=== PATIENT | female | born 1985 | race American Indian/Alaskan Native ===

== ENCOUNTER 2017-05-09 23:42 | Emergency (ER) | payer BC ==
[2017-05-10] MEDS ORDERED: TYLENOL PO ONE (00:21)
[2017-05-10 00:52] LABS: Basophils % (Auto) 0.5 % (0.0-1.8); Eosinophils % (Auto) 4.7 % (0.0-4.3); Hematocrit 41.5 % (30.3-42.9); Hemoglobin 13.9 gm/dl (10.1-14.3); Mean Corpuscular HGB Conc 34 % (30-34); Mean Corpuscular Hemoglobin 30 pg (28-32); Mean Corpuscular Volume 90 fl (79-97); Platelet Count 321 K/mm3 (140-440); Red Blood Count 4.59 M/mm3 (3.65-5.03); White Blood Count 10.7 K/mm3 (4.5-11.0)
[2017-05-10 01:09] LABS: Anion Gap 18 mmol/L; BUN/Creatinine Ratio 17; Blood Urea Nitrogen 12 mg/dL (7-17); Calcium 9.6 mg/dL (8.4-10.2); Carbon Dioxide 22 mmol/L (22-30); Chloride 102.3 mmol/L (98-107); Glucose 96 mg/dL (65-100); Potassium 3.5 mmol/L (3.6-5.0); Sodium 139 mmol/L (137-145)
[2017-05-10 02:48] LABS: Bacteria,Urine 2+ /HPF (Negative); Bilirubin,Urine NEG (Negative); Blood,Urine NEG (Negative); Ketones,Urine NEG (Negative); Leukocyte Esterase,Urine TR (Negative); Mucus,Urine 1+ /HPF; Nitrite,Urine NEG (Negative); Protein,Urine <15 mg/dL mg/dL (Negative)
--- NOTE | 2017-05-10 04:24 | Cat Scan Report ---
FINAL REPORT EXAM: CT CERVICAL SPINE WO CON HISTORY: headache TECHNIQUE: CT imaging is acquired through the cervical spine without contrast. Transaxial, coronal and sagittal reformations are provided. PRIORS: None. FINDINGS: The cervical spine is intact. Vertebral body heights are preserved. No acute fracture or listhesis. Atlanto-dens interval and odontoid process are intact. Intervertebral disc spaces are preserved. No perivertebral soft tissue swelling or hematoma identified. Limited soft tissue exam of the visualized neck is remarkable for a possible right thyroid 12 millimeter nodule. IMPRESSION: No acute cervical spine fracture or soft tissue abnormality identified within limits of noncontrast exam. Correlate with physical exam and follow up as warranted. Possible 12 millimeter right thyroid nodule. Consider follow-up ultrasound.
--- NOTE | 2017-05-10 04:26 | Cat Scan Report ---
FINAL REPORT EXAM: CT HEAD/BRAIN WO CON HISTORY: headache TECHNIQUE: CT imaging acquired through the head without intravenous contrast. Transaxial reformations are provided. PRIORS: None. FINDINGS: The ventricles, cisterns and sulci are normal. No intraparenchymal or extra-axial mass, hemorrhage, or mass effect. Lopez and white-matter differentiation is normal. Normal spherical shape of the globes. Paranasal sinuses and mastoid air cells are clear. No skull or facial fracture visualized. IMPRESSION: No acute intracranial abnormality. Consider follow-up MRI as warranted.
[2017-05-10] MEDS ORDERED: REGLAN IV ONE (06:29)
[2017-05-10] MEDS ORDERED: BENADRYL IV ONE (06:29)
[2017-05-10] MEDS ORDERED: XYLOCAINE TOPICAL 4% TP ONE (06:29)
--- NOTE | 2017-05-10 06:31 | Emergency Department Report ---
ED General Adult HPI - General Chief complaint: Headache Stated complaint: HEADACHE, BACKPAIN, Time Seen by Provider: 05/10/17 06:15 Source: patient, RN notes reviewed Mode of arrival: Ambulatory Limitations: No Limitations - History of Present Illness Initial comments: This is a 31-year-old female, the patient is previously unknown to this provider , she is 2, para 1, last menstrual period was in March. She has an DIRECTOR OF CARDIOLOGY doctor, but she cannot recall the name of her DIRECTOR OF CARDIOLOGY doctor. The patient presents to the ER with 2 complaints. First complaint is headache. The headache is right-sided, temporal, and radiates down to the right neck. The headache has been present for 3 days. There is no trauma, the patient is not having fevers or chills, there is no neck stiffness. The headache is not sudden or thunderclap in nature, it did not which maximal intensity within an hour, and it is not the worse headache of her life. The headache started very mildly, it is throbbing, in which maximal intensity around 24 hours ago. Patient reports a worse headache a few months ago. Patient endorses no tinnitus or vertigo, indicates no pain or claudication or trismus or malocclusion, but does endorse sensitivity to light. Her next complaint is back pain. Back pain is in the bilateral sacroiliac regions. It is achy, and does not radiate anywhere, increases with palpation, decreases with rest. There is no abdominal pain, no irritative or obstructive urinary symptoms, no bladder or bowel retention or incontinence. There is also no saddle anesthesia. -: Gradual Location: head, back Severity scale (0 -10): 10 Quality: aching Consistency: intermittent Improves with: movement, rest Associated Symptoms: headaches. denies: confusion, chest pain - Related Data Home Medications Medication Instructions Recorded Confirmed Last Taken ALBUTEROL Inhaler 1 puff IH BID 05/10/17 05/10/17 Unknown Tablet 1 tab PO DAILY 05/10/17 05/10/17 Unknown Previous Rx's Medication Instructions Recorded Last Taken Type Acetaminophen [Tylenol Arthritis] 650 mg PO Q6HR PRN #30 tablet.er 05/10/17 Unknown Rx Doxylamine Succinate/Vit B6 1 each PO QHS PRN #30 tablet.dr 05/10/17 Unknown Rx [Diclegis Dr 10-10 mg Tablet] Dipti Root [Dipti] 250 mg PO QID PRN #30 capsule 05/10/17 Unknown Rx Vit Calc,Iron,Folic 1 each PO QDAY #30 tablet 05/10/17 Unknown Rx [ Vitamins] Allergies Allergy/AdvReac Type Severity Reaction Status Date / Time Penicillins Allergy Itching Verified 05/10/17 00:17 ED Review of Systems ROS: Stated complaint: HEADACHE, BACKPAIN, Other details as noted in HPI Constitutional: denies: fever Eyes: denies: eye discharge, vision change ENT: denies: epistaxis Respiratory: denies: cough Cardiovascular: denies: chest pain Gastrointestinal: denies: abdominal pain Genitourinary: denies: urgency Musculoskeletal: back pain Skin: denies: lesions Neurological: headache Psychiatric: as per HPI ED Past Medical Hx - Past Medical History Hx Asthma: Yes - Surgical History Additional Surgical History: Bilateral breast reduction. - Social History Smoking Status: Never Smoker Substance Use Type: None - Medications Home Medications: Home Medications Medication Instructions Recorded Confirmed Last Taken Type ALBUTEROL Inhaler 1 puff IH BID 05/10/17 05/10/17 Unknown History Acetaminophen [Tylenol Arthritis] 650 mg PO Q6HR PRN #30 tablet.er 05/10/17 Unknown Rx Doxylamine Succinate/Vit B6 1 each PO QHS PRN #30 tablet. 05/10/17 Unknown Rx [Mary Siu 10-10 mg Tablet] Dipti Root [Dipti] 250 mg PO QID PRN #30 capsule 05/10/17 Unknown Rx Tablet 1 tab PO DAILY 05/10/17 05/10/17 Unknown History Vit Calc,Iron,Folic 1 each PO QDAY #30 tablet 05/10/17 Unknown Rx [ Vitamins] ED Physical Exam - General Limitations: No Limitations General appearance: alert, in no apparent distress - Head Head exam: Present: atraumatic, normocephalic - Eye Eye exam: Present: normal appearance, PERRL, EOMI, other (visual acuity intact to finger counting, color perception, reading at a close distance) - ENT ENT exam: Present: normal exam, normal orophraynx, mucous membranes moist, TM's normal bilaterally, normal external ear exam - Neck Neck exam: Present: normal inspection, full ROM. Absent: tenderness, meningismus - Respiratory Respiratory exam: Present: normal lung sounds bilaterally. Absent: respiratory distress, wheezes, rales, rhonchi, stridor, chest wall tenderness, accessory muscle use, decreased breath sounds, prolonged expiratory - Cardiovascular Cardiovascular Exam: Present: regular rate, normal rhythm, normal heart sounds. Absent: bradycardia, tachycardia, irregular rhythm, systolic murmur, diastolic murmur, rubs, gallop - GI/Abdominal GI/Abdominal exam: Present: soft, normal bowel sounds. Absent: distended, tenderness, guarding, rebound, rigid, pulsatile mass - Extremities Exam Extremities exam: Present: normal inspection, full ROM, normal capillary refill. Absent: pedal edema, joint swelling, calf tenderness - Back Exam Back exam: Present: normal inspection, full ROM, paraspinal tenderness, other ( there is reproducible paralumbar tenderness, and sacroiliac tenderness.). Absent: CVA tenderness (R), CVA tenderness (L), vertebral tenderness - Neurological Exam Neurological exam: Present: alert, oriented X3, normal gait, other (Extraocular movements intact. Tongue midline. No facial droop. Facial sensation intact to light touch in the V1, V2, V3 distribution bilaterally. 5 and 5 strength in 4 extremities.. Sensation is intact to light touch in 4 extremities.). Absent : motor sensory deficit - Psychiatric Psychiatric exam: Present: normal affect, normal mood - Skin Skin exam: Present: warm, dry, intact, normal color. Absent: rash ED Course Vital Signs 05/10/17 05/10/17 05/10/17 00:07 02:49 07:00 Temperature 99 F 98.3 F 98.7 F Pulse Rate 61 59 L 90 Respiratory 18 16 16 Rate Blood Pressure 162/91 Blood Pressure 162/91 154/86 121/78 [Left] O2 Sat by Pulse 99 99 Oximetry 05/10/17 07:53 Temperature Pulse Rate Respiratory 18 Rate Blood Pressure Blood Pressure [Left] O2 Sat by Pulse 99 Oximetry - Reevaluation(s) Reevaluation #1: 05/10/17 07:27 Differential diagnosis: Migraine headache, tension headache, cluster headache, associated headache, mechanical back pain, cardiac hemorrhage, sacroiliitis Assessment and plan: 31-year-old female with headache and back pain. A CT scan of the brain and cervical spine were ordered prior to my evaluation. Patient has no trauma, no midline cervical spine tenderness, has a normal neurologic examination, does not have any signs or symptoms or clinical indicators of epidural compression syndrome. Her headache does not historically sound consistent with subarachnoid hemorrhage, and her exam and history are not consistent with ischemic stroke or hemorrhagic stroke. Headache is most likely related headache. Back pain is reproducible, paralumbar, and in the bilateral sacroiliac regions. Has appropriate strength and sensation, no indication of epidural compression syndrome at this time. Patient not a candidate for NSAIDs given , patient treated with Reglan, Benadryl for headache, acetaminophen for headache and back pain, and given 4% lidocaine intranasally through spenopalatine block Patient feels somewhat improved, she can follow up with her outpatient DIRECTOR OF CARDIOLOGY doctor. Return precautions are reviewed. ED Medical Decision Making - Lab Data Result diagrams: 05/10/17 00:28 05/10/17 00:28 Vital Signs 05/10/17 05/10/17 00:07 02:49 Temperature 99 F 98.3 F Pulse Rate 61 59 L Respiratory 18 16 Rate Blood Pressure 162/91 Blood Pressure 162/91 154/86 [Left] O2 Sat by Pulse 99 Oximetry Lab Results 05/10/17 05/10/17 05/10/17 Range/Units 00:28 00:28 00:28 WBC 10.7 (4.5-11.0) K/mm3 RBC 4.59 (3.65-5.03) M/mm3 Hgb 13.9 (10.1-14.3) gm/dl Hct 41.5 (30.3-42.9) % MCV 90 (79-97) fl MCH 30 (28-32) pg MCHC 34 (30-34) % RDW 13.0 L (13.2-15.2) % Plt Count 321 (140-440) K/mm3 Lymph % (Auto) 24.8 (13.4-35.0) % [place] % (Auto) 9.9 H (0.0-7.3) % Eos % (Auto) 4.7 H (0.0-4.3) % Baso % (Auto) 0.5 (0.0-1.8) % Lymph # 2.7 (1.2-5.4) K/mm3 [place] # 1.1 H (0.0-0.8) K/mm3 Eos # 0.5 H (0.0-0.4) K/mm3 Baso # 0.1 (0.0-0.1) K/mm3 Seg Neutrophils % 60.1 (40.0-70.0) % Seg Neutrophils # 6.4 (1.8-7.7) K/mm3 Sodium 139 (137-145) mmol/L Potassium 3.5 L (3.6-5.0) mmol/L Chloride 102.3 (98-107) mmol/L Carbon Dioxide 22 (22-30) mmol/L Anion Gap 18 mmol/L BUN 12 (7-17) mg/dL Creatinine 0.7 (0.7-1.2) mg/dL Estimated GFR > 60 ml/min BUN/Creatinine Ratio 17 % Glucose 96 (65-100) mg/dL Calcium 9.6 (8.4-10.2) mg/dL HCG, Quant 18000 H (0-4) mIU/mL Urine Color (Yellow) Urine Turbidity (Clear) Urine pH (5.0-7.0) Ur Specific [place] (1.003-1.030) Urine Protein (Negative) mg/dL Urine Glucose (UA) (Negative) mg/dL Urine Ketones (Negative) mg/dL Urine Blood (Negative) Urine Nitrite (Negative) Urine Bilirubin (Negative) Urine Urobilinogen (<2.0) mg/dL Ur Leukocyte Esterase (Negative) Urine WBC (Auto) (0.0-6.0) /HPF Urine RBC (Auto) (0.0-6.0) /HPF U Epithel Cells (Auto) (0-13.0) /HPF Urine Bacteria (Auto) (Negative) /HPF Amorphous Crystals Urine Mucus /HPF 05/10/17 Range/Units 01:59 WBC (4.5-11.0) K/mm3 RBC (3.65-5.03) M/mm3 Hgb (10.1-14.3) gm/dl Hct (30.3-42.9) % MCV (79-97) fl MCH (28-32) pg MCHC (30-34) % RDW (13.2-15.2) % Plt Count (140-440) K/mm3 Lymph % (Auto) (13.4-35.0) % [place] % (Auto) (0.0-7.3) % Eos % (Auto) (0.0-4.3) % Baso % (Auto) (0.0-1.8) % Lymph # (1.2-5.4) K/mm3 [place] # (0.0-0.8) K/mm3 Eos # (0.0-0.4) K/mm3 Baso # (0.0-0.1) K/mm3 Seg Neutrophils % (40.0-70.0) % Seg Neutrophils # (1.8-7.7) K/mm3 Sodium (137-145) mmol/L Potassium (3.6-5.0) mmol/L Chloride (98-107) mmol/L Carbon Dioxide (22-30) mmol/L Anion Gap mmol/L BUN (7-17) mg/dL Creatinine (0.7-1.2) mg/dL Estimated GFR ml/min BUN/Creatinine Ratio % Glucose (65-100) mg/dL Calcium (8.4-10.2) mg/dL HCG, Quant (0-4) mIU/mL Urine Color Yellow (Yellow) Urine Turbidity Clear (Clear) Urine pH 6.0 (5.0-7.0) Ur Specific [place] 1.018 (1.003-1.030) Urine Protein <15 mg/dl (Negative) mg/dL Urine Glucose (UA) Neg (Negative) mg/dL Urine Ketones Neg (Negative) mg/dL Urine Blood Neg (Negative) Urine Nitrite Neg (Negative) Urine Bilirubin Neg (Negative) Urine Urobilinogen 2.0 (<2.0) mg/dL Ur Leukocyte Esterase Tr (Negative) Urine WBC (Auto) 12.0 H (0.0-6.0) /HPF Urine RBC (Auto) 1.0 (0.0-6.0) /HPF U Epithel Cells (Auto) 14.0 H (0-13.0) /HPF Urine Bacteria (Auto) 2+ (Negative) /HPF Amorphous Crystals 1+ Urine Mucus 1+ /HPF - Radiology Data Radiology results: report reviewed, image reviewed Noncontrast CT scan of the brain and cervical spine negative, incidental right- sided thyroid nodule is suspected. Obstetrics ultrasound demonstrates intrauterine , 6 weeks and 6 days. No obvious bleed. Critical care attestation.: If time is entered above; I have spent that time in minutes in the direct care of this critically ill patient, excluding procedure time. ED Disposition Clinical Impression: , Back pain, Headache Disposition: DC-01 TO HOME OR SELFCARE Is pt being admited?: No Does the pt Need Aspirin: No Condition: Stable Instructions: (ED) Additional Instructions: Rest and avoid heavy lifting. Avoid strenuous physical activity. Take pain medication as directed. Follow up with an DIRECTOR OF CARDIOLOGY doctor as soon as possible to start care. Please note that blood pressure was elevated. This is be followed up by an DIRECTOR OF CARDIOLOGY doctor as soon as possible. Return to the ER right away with new pain, worsened pain, migration of pain, fevers, chills, lethargy, irritability, projectile vomiting, change in mental status, inability to tolerate liquid feeds, loss of consciousness, confusion. CT scan of the cervical spine suggests the possibility of a thyroid nodule. This should be followed up by a primary care doctor or DIRECTOR OF CARDIOLOGY doctor within the next 6-8 weeks. Prescriptions: Doxylamine Succinate/Vit B6 [Mary Siu 10-10 mg Tablet] 1 each PO QHS PRN #30 tablet.dr PRN Reason: Nausea Acetaminophen [Tylenol Arthritis] 650 mg PO Q6HR PRN #30 tablet.er PRN Reason: Pain Dipti Root [Dipti] 250 mg PO QID PRN #30 capsule PRN Reason: Nausea Vit Calc,Iron,Folic [ Vitamins] 1 each PO QDAY #30 tablet Referrals: PRIMARY CARE, [Primary Care Provider] - 3-5 Days [facility] [Provider Group] - 3-5 Days [facility] [Provider Group] - 3-5 Days [facility] [Provider Group] - 3-5 Days Forms: Work/School Release Form(ED)
--- NOTE | 2017-05-10 07:32 | Ultrasound Report ---
FINAL REPORT EXAM: US OB TRANSVAGINAL HISTORY: back pain COMPARISONS: None. FINDINGS: Transvaginal grayscale, color Doppler and M-mode first-trimester ultrasound Single living intrauterine with recorded cardiac activity of 126 beats per minute and crown-rump length of approximately 9 millimeters corresponding to estimated gestational age of 6 weeks 6 days and delivery date of 12/28/2017. No perigestational hemorrhage identified. Normal appearing 4 millimeter yolk sac. The right ovary demonstrates normal echotexture and measures 3.1 x 1.9 x 3.3 cm. The left ovary measures 4.4 x 1.8 x 2.7 cm and contains a 2 centimeter functional cyst. IMPRESSION: Single living intrauterine with estimated gestational age of 6 weeks 6 days and delivery date of 12/28/2017.
--- NOTE | 2017-05-10 07:34 | Ultrasound Report ---
FINAL REPORT EXAM: US OB \T\lt; = 14 WEEKS FETUS HISTORY: back pain COMPARISONS: None. FINDINGS: Transabdominal grayscale, color Doppler and M-mode first-trimester ultrasound Single living intrauterine with recorded cardiac activity of 126 beats per minute and crown-rump length of approximately 9 millimeters corresponding to estimated gestational age of 6 weeks 6 days and delivery date of 12/28/2017. No perigestational hemorrhage identified. Normal appearing 4 millimeter yolk sac. The right ovary demonstrates normal echotexture and measures 3.1 x 1.9 x 3.3 cm. The left ovary measures 4.4 x 1.8 x 2.7 cm and contains a 2 centimeter functional cyst. IMPRESSION: Single living intrauterine with estimated gestational age of 6 weeks 6 days and delivery date of 12/28/2017.
[2017-05-10 07:53] VITALS: BP 121/78
== END 2017-05-10 08:15 | disposition home or self-care (01) ==
LOC: ED 23:42
DX: O26.891 Other specified pregnancy related conditions, first trimester (principal); O99.511 Diseases of the respiratory system complicating pregnancy, first trimester; J45.909 Unspecified asthma, uncomplicated; R51 Headache; M54.5 Low back pain; Z3A.01 Less than 8 weeks gestation of pregnancy; Z88.0 Allergy status to penicillin
CPT/HCPCS: 36415; 70450; 72125; 76801; 76817; 80048; 81001; 84702; 85025; 96374; 96375; 99285; J1200; J2765